=== PATIENT | female | born 1985 | race Caucasian/White ===

== ENCOUNTER 2016-12-20 22:29 | Emergency (ER) | payer OTHER ==
[~2016-12-20] VITALS: Ht 160 cm; Wt 71.7 kg
[~2016-12-20 22:29] MED LIST: BACLOFEN10 M1 PO; DILAUDID2 M1 PO; FLEXERIL10 MG PO; GABAPENTIN300 M2 PO; IBUPROFEN800 M1 PO; MEDROL4 M2 PO; MOTRIN800 MG PO; NITROFURANTOIN100 M6 PO; OXYCODONE-ACET1 EACH PO; PERCOCET 325 MG1 TA2 PO; POLYTRIM O200 GTT/BO OPH; PREDNISONE10 MG PO; TYLENOL #31 TAB PO; VALACYCLOVIR1000 MG PO; VENTOLIN H0.09 MG/Ac INH; VICODIN5-300 PO; ZITHROMAX500 MG PO
[2016-12-20 22:41] VITALS: BP 132/77
[2016-12-20] MEDS ORDERED: BACLOFEN10 M1 PO (23:11)
[2016-12-20] MEDS ORDERED: ULTRAM50 M1 PO (23:11)
--- NOTE | 2016-12-20 23:13 | ED NECK/BACK PAIN COMPLAINT ---
History of Present Illness General Chief Complaint: Low Back Pain/Injury Stated Complaint: LOWER BACK PAIN Source: patient, old records Exam Limitations: no limitations Vital Signs & Intake/Output Vital Signs & Intake/Output Vital Signs Date Time Temp Pulse Resp B/P Pulse O2 O2 Flow FiO2 Ox Delivery Rate 12/20 2241 97.5 87 18 132/77 100 Room Air ED Intake and Output 12/21 0000 12/20 1200 Intake Total 0 Output Total Balance 0 Intake, Oral 0 Patient 158 lb Weight Allergies Coded Allergies: NO KNOWN ALLERGIES (09/14/16) Reconcile Medications Baclofen 10 MG TABLET 0.5 TAB PO BID PRN MUSCLE RELAXER (Reported) Baclofen 10 MG TABLET 1-2 TAB PO TID PRN muscle strain Gabapentin 300 MG CAPSULE 1 CAP PO TID PRN ANXIETY (Reported) Hydromorphone HCl (Dilaudid) 2 MG TABLET 1 TAB PO Q6H PRN breakthrough pain Ibuprofen 800 MG TABLET 1 TAB PO PRN PAIN (Reported) Methylprednisolone. (Medrol) 4 MG TAB.DS.PK 1 DP PO AD INFLAMMATION Nitrofurantoin Monohyd/M-Cryst (Nitrofurantoin Harper-Mcr 100 MG) 100 MG CAPSULE 1 CAP PO BID ANTIBIOTIC (Reported) Oxycodone HCl/Acetaminophen (Oxycodone-Acetaminophen 5-325) 5 MG-325 MG TABLET 1 TAB PO BID PAIN (Reported) Tramadol HCl (Ultram) 50 MG TABLET 1-2 TAB PO Q6PRN PRN severe pain Valacyclovir HCl (Valacyclovir) 1,000 MG TABLET 1 TAB PO DAILY ANTIVIRAL ( Reported) Triage Note: PT TO TRIAGE WITH C/O LOWER BACK PAIN 06/25, PAIN IS CHRONIC, HX OF L4L5 DISCS HERNIATION AND SURGERY. PT TOOK MOTRIN THIS MORNING WITH NO PAIN RELIEF. VSS. NO OTHER COMPLAINTS. Triage Nurses Notes Reviewed? yes Onset: Evening Duration: hour(s):, constant, continues in ED Timing: recent history Quality/Severity: moderate Location: lumbar spine, paraspinous muscles Radiation: buttocks Context: lifting, turning/bending Method of Injury: twisted Loss of Consciousness: no loss of consciousness Modifying Factors: immobilization, rest Associated Symptoms: lower back pain, muscle spasm LMP (ages 10-50): unknown : No Patient currently breastfeeds: No HPI: Several hours prior to admission patient complains of right low back pain described as achy mild to moderate in severity radiating to buttocks worse with movement with little improvement taking ibuprofen. She denies fever chills nausea vomiting diarrhea abdominal pain chest pain shortness breath headache dysuria rash bleeding change in motor sensory function change in bowel bladder habit Past History Travel History Traveled to [place] past 21 day No Medical History Any Pertinent Medical History? see below for history Neurological: NONE EENT: NONE Cardiovascular: NONE Respiratory: NONE Gastrointestinal: NONE Hepatic: NONE Renal: NONE Musculoskeletal: disk herniation Psychiatric: NONE Endocrine: NONE Blood Disorders: NONE Cancer(s): NONE CONSUMER SALES REPRESENTATIVE/Reproductive: NONE Surgical History Surgical History: non-contributory Psychosocial History What is your primary language Ukrainian Tobacco Use: Never used Family History Hx Contributory? No Review of Systems Review of Systems Constitutional: Reports: no symptoms. Eyes: Reports: no symptoms. Ears, Nose, Throat, Mouth: Reports: no symptoms. Respiratory: Reports: no symptoms. Cardiovascular: Reports: no symptoms. Gastrointestinal/Abdominal: Reports: no symptoms. Musculoskeletal: Reports: see HPI, back pain. Skin: Reports: no symptoms. Neurological/Psychological: Reports: no symptoms. All Other Systems: Reviewed and Negative Physical Exam Physical Exam General Appearance: well developed/nourished, mild distress Head: atraumatic Eyes: Bilateral: PERRL, EOMI. Ears, Nose, Throat, Mouth: hearing grossly normal Neck: normal inspection, supple, full range of motion, normal alignment Respiratory: normal breath sounds Cardiovascular: regular rate/rhythm Peripheral Pulses: 4+ carotid (R), 4+ carotid (L) Gastrointestinal: soft, non-tender Back: normal inspection Extremities: normal range of motion Straight Leg Raising: Right: Negative. Left: Negative. Sensory: Medial Le: L4R, L4L. Top of Foot: 2: L5R, L5L. Sole of Foot: 2: SIR, [place]. Motor: Deficit L4 Right: No Deficit L4 Left: No Deficit L5 Right: No Deficit L5 Left: No Deficit S1 Right: No Deficit S1 Right: No DTR: Deficit L4 Left: No Deficit L4 Right: No Deficit S1 Left: No Deficit S1 Right: No Patellar: 3: L4 Right, L4 Left. Neurologic/Psych: no motor/sensory deficits, awake, alert, oriented x 3, normal gait, normal mood/affect, rn discharge II-XII nml as tested Skin: intact, normal color, warm/dry Progress Differential Diagnosis: herniated disc, myofascial strain, sciatica Plan of Care: Baclofen tramadol continue ibuprofen Departure Departure Time of Disposition: 2309 Disposition: HOME OR SELF CARE Condition: Stable Clinical Impression Primary Impression: Lumbosacral strain Qualifiers: Encounter type: initial encounter Qualified Code: S39.012A - Strain of muscle, fascia and tendon of lower back, initial encounter Referrals: MIKAL GONCALVES,VERA (PCP/Family) Departure Forms: Customer Survey General Discharge Information Prescriptions: Current Visit Scripts Baclofen 1-2 TAB PO TID PRN muscle strain #30 TAB Tramadol HCl (Ultram) 1-2 TAB PO Q6PRN PRN severe pain #30 TAB
== END 2016-12-21 00:20 ==
LOC: ERH 22:29
DX: S39.012A Strain of muscle, fascia and tendon of lower back, initial encounter (principal); X58.XXXA Exposure to other specified factors, initial encounter

== ENCOUNTER 2017-03-20 09:56 | Emergency (ER) | payer OTHER ==
[~2017-03-20] VITALS: Ht 160 cm; Wt 71.7 kg
[~2017-03-20 09:56] MED LIST changes: +ULTRAM50 M1 PO
[2017-03-20 10:01] VITALS: BP 117/76
--- NOTE | 2017-03-20 11:41 | ED GI/GU/ABDOMINAL COMPLAINT ---
History of Present Illness General Chief Complaint: Nausea, Vomiting, Diarrhea Stated Complaint: N/V Source: patient Exam Limitations: no limitations Vital Signs & Intake/Output Vital Signs & Intake/Output ED Intake and Output 03/21 0000 03/20 1200 Intake Total Output Total Balance Patient 158 lb Weight Allergies Coded Allergies: NO KNOWN ALLERGIES (09/14/16) Reconcile Medications Ibuprofen 800 MG TABLET 1 TAB PO PRN PAIN (Reported) Ondansetron (Zofran Odt) 4 MG TAB.RAPDIS 1 TAB SL TID PRN NAUSEA AND VOMITING Sulfamethoxazole/Trimethoprim (Bactrim Ds Tablet) 800 MG-160 MG TABLET 1 TAB PO BID UTI Tramadol HCl (Ultram) 50 MG TABLET 1-2 TAB PO Q6PRN PRN severe pain Triage Note: COMPLAINS OF N/V/D X 2 DAYS. Triage Nurses Notes Reviewed? yes ? N Is pt currently ? No HPI: This patient is a 31-year-old female who presented to the emergency department today for evaluation of nausea and vomiting 2 days. The patient reported that she has been having abdominal pain except a 6 out of 10 and is dull. She reported that the pain is intermittent and mostly associated with vomiting. She denied any blood in the vomitus. She endorsed 4 episodes of vomiting today. She also reported multiple episodes of watery, nonbloody diarrhea. Her daughter is sick with the same. The patient denied any fevers or chills. She did report some urinary burning and frequency. She also reported mild throat pain. No nasal congestion or ear pain. No chest pain or difficulty breathing. This patient did receive her influenza shot this year. (JERRY EDGE PA-C) Past History Travel History Traveled to [place] past 21 day No Medical History Any Pertinent Medical History? see below for history Neurological: NONE EENT: NONE Cardiovascular: NONE Respiratory: NONE Gastrointestinal: NONE Hepatic: NONE Renal: NONE Musculoskeletal: disk herniation Psychiatric: NONE Endocrine: NONE Blood Disorders: NONE Cancer(s): NONE MARKETING COMMUNICATION MANAGER/Reproductive: NONE Surgical History Surgical History: non-contributory Psychosocial History What is your primary language Romanian Tobacco Use: Never used ETOH Use: denies use Illicit Drug Use: denies illicit drug use Family History Hx Contributory? No (JERRY EDGE PA-C) Review of Systems Review of Systems Constitutional: Reports: no symptoms. EENTM: Reports: see HPI. Respiratory: Reports: no symptoms. Cardiovascular: Reports: no symptoms. GI: Reports: see HPI. Genitourinary: Reports: see HPI. Musculoskeletal: Reports: no symptoms. Skin: Reports: no symptoms. Neurological/Psychological: Reports: no symptoms. All Other Systems: Reviewed and Negative (JERRY EDGE PA-C) Physical Exam Physical Exam Gastrointestinal: normal bowel sounds, soft, non-tender, no organomegaly, NO REBOUND OR GUARDING. nO MASSES APPRECIATED. nONDISTENDED. nO mCbURNEY'S POINT TENDERNESS. Comments: Well-developed well-nourished person in no acute distress HEENT: Normal EENT exam, head normocephalic, moist mucous membranes Pupils equally round and reactive to light. Mild pharyngeal injection with no tonsillar exudates. No uvular shift. No oropharyngeal lesions or edema Neck: Supple, no lymphadenopathy Back: Normal gait. Normal inspection Cardiovascular: Regular rate and rhythm with no murmurs, rubs, or gallops Respiratory: Chest nontender. No respiratory distress. Speaking in full sentences Extremity: Normal equal pulses Neuro: Alert oriented x3, cranial nerves II through XII grossly intact. Skin: No appreciable rash on exposed skin, skin is warm and dry. Psych: Mood and affect is normal Core Measures ACS in differential dx? No Severe Sepsis Present: No Septic Shock Present: No (JERRY EDGE PA-C) Progress Differential Diagnosis: AMI, appendicitis, biliary colic, bowel obstruction, colon cancer, cholecystitis, diverticulitis, ectopic , endometritis, gastritis, hepatitis, ischemic bowel, inflamm bowel dis, intrauterine , kidney stone, ovarian cyst, ovarian torsion, pancreatitis, PID/cervicitis, PUD/ GERD, perforated viscous, UTI/pyelo, INFLUENZA, VIRAL SYNDROME Plan of Care: Orders Procedure Date/time Status RAPID VIRAL INFLUENZA A 03/20 1132 Complete THROAT CULTURE W/QUICK STREP 03/20 1132 Active URINE 03/20 1003 Complete URINALYSIS 03/20 1003 Complete Laboratory Tests 03/20/17 1012: Urinalysis LIGHT H, Urine Color YEL, Urine Clarity CLEAR, Urine pH 7.0, Ur Specific Petty 1.010, Urine Protein TRACE H, Urine Ketones NEG, Urine Nitrite NEG, Urine Bilirubin NEG, Urine Urobilinogen 0.2, Ur Leukocyte Esterase LARGE H , Ur Microscopic SEDIMENT EXAMINED, Urine WBC 15-25 H, Ur Epithelial Cells MANY H, Urine Bacteria MANY H, Urine Mucus FEW, Urine Hemoglobin NEG, Urine Glucose NEG, Urine Test NEGATIVE Microbiology 03/20 1145 NASOPHARYN: Influenza Virus A & B Rapid Smear - COMP Initial ED EKG: none (JERRY EDGE PA-C) Departure Departure Disposition: HOME OR SELF CARE Condition: Stable Clinical Impression Primary Impression: Viral syndrome Secondary Impressions: Urinary tract infection Qualifiers: Urinary tract infection type: site unspecified Hematuria presence: without hematuria Qualified Code: N39.0 - Urinary tract infection, site not specified Referrals: MIKAL GONCALVES,VERA (PCP/Family) Additional Instructions: Please take Zofran as prescribed for nausea. Take antibiotic as prescribed and for the full duration for urinary tract infection. Please follow-up with your primary care physician. Rest and stay hydrated. Return for any worsening symptoms or concerns. Departure Forms: Customer Survey General Discharge Information Prescriptions: Current Visit Scripts Ondansetron (Zofran Odt) 1 TAB SL TID PRN NAUSEA AND VOMITING #10 TAB Sulfamethoxazole/Trimethoprim (Bactrim Ds Tablet) 1 TAB PO BID #14 TAB (JERRY EDGE PA-C) PA/PIECE DYE WORKER Co-Sign Statement Statement: ED Attending supervision documentation- [] I saw and evaluated the patient. I have also reviewed all the pertinent lab results and diagnostic results. I agree with the findings and the plan of care as documented in the PA's/PIECE DYE WORKER's documentation. [X] I have reviewed the ED Record and agree with the PA's/PIECE DYE WORKER's documentation. [] Additions or exceptions (if any) to the PAs/PIECE DYE WORKER's note and plan are summarized below: [] (LOYDA GONCALVES,NINO)
[2017-03-20] MEDS ORDERED: ZOFRAN ODT4 M1 SL (12:27)
[2017-03-20] MEDS ORDERED: BACTRIM DS TAB1 EACH PO (12:27)
== END 2017-03-20 12:31 ==
LOC: ERH 09:56
DX: B34.9 Viral infection, unspecified (principal); N39.0 Urinary tract infection, site not specified
CPT/HCPCS: 81001; 81025; 87804; 87804-59; J3101